=== PATIENT | male | born 1965 | race African-American/Black ===

== ENCOUNTER 2020-12-04 13:23 | Emergency (ER) | payer OTHER ==
[2020-12-04 14:17] VITALS: BP 126/74; PULSE 87; TEMP 98; BMI 23.1
== END 2020-12-04 15:59 | disposition home or self-care (01) ==
LOC: JERFT 13:23
DX: M79.671 Pain in right foot (principal); M79.674 Pain in right toe(s)
CPT/HCPCS: 73630-TC-RT-FY; 99284-25

== ENCOUNTER 2021-05-18 04:33 | Day surgery (SDC) | payer OTHER ==
[2021-05-17 14:52] VITALS: BMI 23.1
[2021-05-18] MEDS ORDERED: MIDAZOLAM HCL 2 MG/2 ML SINGLE DOSE VIAL ONE ×4 (10:07→11:04)
[2021-05-18] MEDS ORDERED: PROPOFOL 20 ML ONE ×2 (10:07→10:44)
[2021-05-18] MEDS ORDERED: LIDOCAINE HCL/PF 2% SDV 5ML VIAL ONE (10:44)
[2021-05-18] MEDS ORDERED: KETAMINE HCL 200 MG/20 ML VIAL ONE (10:49)
[2021-05-18] MEDS ORDERED: DEXAMETHASONE SOD PHOSPHATE 10 MG/1 ML VIAL ONE (11:05)
[2021-05-18] MEDS ORDERED: ROPIVACAINE HCL 0.5% 30ML VIAL ONE (11:05)
[2021-05-18] MEDS ORDERED: ceFAZolin SODIUM 1 GM VIAL IVPB ONE (11:40)
[2021-05-18] MEDS ORDERED: SODIUM CHLORIDE 0.9% P/F 10 ML VIAL IJ ONE (11:50)
[2021-05-18] MEDS ORDERED: ceFAZolin SODIUM 1 GM VIAL ONE (11:50)
[2021-05-18 16:00] VITALS: BP 114/74; PULSE 66; TEMP 98.6
== END 2021-05-18 15:50 | disposition home or self-care (01) ==
LOC: JASU-SURG 04:33
PROVIDERS: ATTEND Orthopaedic Surgery
PROC: 0LU14JZ Supplement Right Shoulder Tendon with Synthetic Substitute, Percutaneous Endoscopic Approach (ICD-10-PCS; 2021-05-18)
PROC: 0RNJ4ZZ Release Right Shoulder Joint, Percutaneous Endoscopic Approach (ICD-10-PCS; principal; 2021-05-18 12:30)
PROC: 0LM14ZZ Reattachment of Right Shoulder Tendon, Percutaneous Endoscopic Approach (ICD-10-PCS; 2021-05-18 12:30)
DX: M75.101 Unspecified rotator cuff tear or rupture of right shoulder, not specified as traumatic (principal)
CPT/HCPCS: 94760; J1100

== ENCOUNTER 2022-01-25 16:52 | Emergency (ER) | payer OTHER ==
[2022-01-25 17:03] VITALS: BP 165/62; PULSE 84; RESP 18; TEMP 98.3; BMI 21.7
[2022-01-25] MEDS ORDERED: ACETAMINOPHEN 500 MG TABLET (FP) PO ONE (19:43)
[2022-01-25] MEDS ORDERED: IBUPROFEN 600 MG TABLET (FP) PO ONE ×2 (19:43→19:46)
[2022-01-25] MEDS ORDERED: ACETAMINOPHEN 325 MG TABLET (FP) ONE (19:45)
== END 2022-01-25 20:00 | disposition home or self-care (01) ==
LOC: JERFT 16:52 → JER 16:52 → JERFT 20:00
DX: S93.402A Sprain of unspecified ligament of left ankle, initial encounter (principal); X50.0XXA Overexertion from strenuous movement or load, initial encounter
CPT/HCPCS: 73630-TC-LT; 99283-25

== ENCOUNTER 2023-01-17 18:36 | Emergency (ER) | payer OTHER ==
[2023-01-17 18:53] VITALS: BP 114/69; PULSE 79; RESP 18; TEMP 98.2; BMI 23.1
[2023-01-17] MEDS ORDERED: ACETAMINOPHEN 500 MG TABLET (FP) PO ONE (20:10)
[2023-01-17] MEDS ORDERED: IBUPROFEN 600 MG TABLET (FP) PO ONE ×2 (20:10→20:11)
[2023-01-17] MEDS ORDERED: ACETAMINOPHEN 500 MG TABLET (FP) ONE (20:11)
== END 2023-01-17 21:53 | disposition home or self-care (01) ==
LOC: JERFT 18:36 → JER 18:36 → JERFT 21:53
DX: S93.402A Sprain of unspecified ligament of left ankle, initial encounter (principal); W01.0XXA Fall on same level from slipping, tripping and stumbling without subsequent striking against object, initial encounter; Y92.9 Unspecified place or not applicable
CPT/HCPCS: 73610-TC-LT-FY; 99283-25